=== PATIENT | male | born 1970 | race Caucasian/White ===

== ENCOUNTER 2017-04-15 10:47 | Emergency (ER) | payer OTHER, BC ==
[2017-04-15 11:06] VITALS: TEMP 98.3; O2SAT 98
[2017-04-15 11:10] VITALS: RESP 18
--- NOTE | 2017-04-15 11:33 | ED PDOC ---
Arrival/HPI - General Chief Complaint: Lower Extremity Problem/Injury Time Seen by Provider: 04/15/17 11:16 Historian: Patient, Family - History of Present Illness Narrative History of Present Illness (Text): 04/15/17 11:25 Jacek Dunham is a 47 year old male presents to the emergency department complaining of lower right back pain that radiates to his right leg after a mechanical fall. Patient's family reports he was [place] work in [place] and when trying to get on the cart, he missed his step, hit his polanco, and fell on the right side of his body. The trauma occurred at around 08:30 am and patient was a having pain with ambulating after. Patient notes taking Tylenol at home for the pain, but no significant relief was made. Patient denies chest pain, shortness of breath, dizziness, lightheadedness, or palpitation. Patient did not hit their head. Patient denies any loss of consciousness, headache, fever, chills, cough, nausea, vomiting, diarrhea, visual changes, neck pain, dysuria, hematuria, or other complaints. Upon questioning, patient says that he did have a MRI which he thinks may have shown a herniated disc. Last tetanus < 1 year. PMD: Dr. Mcintosh Time/Duration: 1-3 hours Symptom Onset: Sudden Symptom Course: Unchanged Quality: Aching Activities at Onset: Light Modifying Factors (Text): pain is worse on palpation Context: Work Associated Symptoms (Text): None Past Medical History - Provider Review Nursing Documentation Reviewed: Yes - Infectious Disease Hx of Infectious Diseases: None - Psychiatric Hx Substance Use: No - Surgical History Hx Orthopedic Surgery: Yes - Anesthesia Hx Anesthesia: Yes Hx Anesthesia Reactions: No Family/Social History - Physician Review Nursing Documentation Reviewed: Yes Family/Social History: Unknown Family HX Smoking Status: Unknown If Ever Smoked Hx Alcohol Use: No Hx Substance Use: No Allergies/Home Meds Allergies/Adverse Reactions: Allergies acetaminophen [From Percocet] Allergy (Verified 04/15/17 11:06) RASH oxycodone Allergy (Verified 04/15/17 11:06) RASH silodosin [From Rapaflo] Allergy (Verified 04/15/17 11:08) RASH Review of Systems - Physician Review All systems were reviewed & negative as marked: Yes - Review of Systems Constitutional: absent: Fevers Respiratory: absent: SOB Cardiovascular: absent: Chest Pain Gastrointestinal: absent: Abdominal Pain Musculoskeletal: Back Pain (right lower side), Other (right leg pain with abrasions ) Physical Exam Vital Signs Temp Pulse Resp BP Pulse Ox 04/15/17 12:34 78 18 117/74 98 04/15/17 11:10 98.3 F 80 18 115/78 98 04/15/17 11:00 98.3 F 80 16 115/78 98 Temperature: Afebrile Blood Pressure: Normal Pulse: Regular Respiratory Rate: Normal Appearance: Positive for: Well-Appearing, Non-Toxic, Comfortable Pain Distress: None Mental Status: Positive for: Alert and Oriented X 3 - Systems Exam Head: Present: Atraumatic, Normocephalic Pupils: Present: PERRL Conjunctiva: Present: Normal Mouth: Present: Moist Mucous Membranes Pharnyx: Present: Normal. No: ERYTHEMA, EXUDATE Neck: Present: Normal Range of Motion Respiratory/Chest: Present: Clear to Auscultation, Good Air Exchange. No: Respiratory Distress, Accessory Muscle Use Cardiovascular: Present: Regular Rate and Rhythm, Normal S1, S2. No: Murmurs Abdomen: Present: Normal Bowel Sounds. No: Tenderness, Distention, Peritoneal Signs Back: Present: Other (tender in right low back region around the posterior iliac bone). No: Midline Tenderness Upper Extremity: Present: Normal Inspection. No: Cyanosis, Edema Lower Extremity: Present: Tenderness (tnederness in polanco), Other (linear abrasion on right anterior polanco). No: Edema Neurological: Present: GCS=15, CN II-XII Intact, Speech Normal Skin: Present: Warm, Dry, Normal Color. No: Rashes Psychiatric: Present: Alert, Oriented x 3, Normal Insight, Normal Concentration Medical Decision Making ED Course and Treatment: 04/15/17 11:25 Impression: 47 year old patient with right lower back pain and right leg pain after trauma. Differential Diagnosis included but are not limited to: muscle spasm vs contusion vs sciatic/radiculopathy Plan: -- Hip and Pelvis X-ray -- Right hip X-ray -- Lumbar spine X-ray -- Tibia fibula (right) X-ray -- Toradol, Ultram, and Valium -- Reassess and disposition Progress Notes: 04/15/17 12:50 Hip and Pelvis X-ray: Creator : Alana Rojas V. FINDINGS: No fracture or gross dislocation. Bilateral superolateral hip joint space narrowing. No lytic lesion. Spondylosis space narrowing inferior lumbar levels. Unremarkable sacroiliac and pubic symphyseal joints. IMPRESSION: Mild superolateral hip joint space narrowing. No fracture or other acute hip pathology appreciated. Inferior lumbar spondylosis with disc space narrowing. S1 spina bifida occulta 04/15/17 12:50 Lumbar Spine X-ray: Creator : Alana Rojas V. FINDINGS: BONES: Lumbar lordotic straightening. . No listhesis. No fracture. Anterior superior L4 spondylosis. S1 spina bifida occulta DISC SPACES: L5-S1 disc space narrowing OTHER FINDINGS: None. IMPRESSION: No fracture. L4 spondylosis. L5-S1 disc space narrowing 04/15/17 12:55 Tibia and Fibula X-ray: Creator: Alana Rojas V. FINDINGS: BONES:No fracture or destructive lesion. JOINT SPACES:Unremarkable. OTHER FINDINGS:None. IMPRESSION: Unremarkable radiographs of the right tibia and fibula. 04/15/17 13:36 x-rays are normal with FROM of all joints on exam with normal reflexes. Patient given nsaid, muscle relaxant, and tramadol with mild-moderate relief. X -rays with no acute findings. Will d/c him with cane in the ED to help with ambulation and f/u pmd. - RAD Interpretation Radiology Orders: 04/15/17 11:31 HIP MIN 2V W/ PELVIS RT [RAD] Stat LS SPINE WITH OBL > 18 YRS OLD [RAD] Stat 04/15/17 11:32 TIBIA FIBULA RIGHT [RAD] Stat [employer] Tile Setter: Radiologist - Medication Orders Current Medication Orders: Discontinued Medications Diazepam (Valium) 5 mg PO ONCE ONE Stop: 04/15/17 11:32 Last Admin: 04/15/17 12:02 Dose: 5 mg Ketorolac Tromethamine (Toradol) 60 mg IM STAT STA Stop: 04/15/17 11:31 Last Admin: 04/15/17 12:02 Dose: 60 mg Tramadol HCl (Ultram) 50 mg PO STAT STA Stop: 04/15/17 11:32 Last Admin: 04/15/17 12:02 Dose: 50 mg - Scribe Statement The provider has reviewed the documentation as recorded by the Scribe 04/15/2017 Selena Javed Attestation: All medical record entries made by the Janeenibe were at my direction and personally dictated by me. I have reviewed the chart and agree that the record accurately reflects my personal performance of the history, physical exam, medical decision making, and the department course for this patient. I have also personally directed, reviewed, and agree with the discharge instructions and disposition. Disposition/Present on Arrival - Present on Arrival Any Indicators Present on Arrival: No History of DVT/PE: No History of Uncontrolled Diabetes: No Urinary Catheter: No History of Decub. Ulcer: No History Surgical Site Infection Following: Orthopedic Procedures - Disposition Have Diagnosis and Disposition been Completed?: Yes Diagnosis: Lumbar radiculopathy, Skin abrasion Disposition: HOME/ ROUTINE Disposition Time: 13:35 Patient Plan: Discharge Patient Problems: Current Active Problems Problem Status Onset Lumbar radiculopathy Acute Skin abrasion Acute Condition: GOOD Discharge Instructions (ExitCare): Lumbar Radiculopathy (ED) Print Language: SIN[place] Additional Instructions: Keep wound clean. Apply bacitracin daily. Take the medications as prescribed. Avoid any strenuous activity and any heavy lifting. However avoid staying in bed for prolonged periods. Follow up with your primary care doctor for reassessment. Return to the emergency department if any new concerning symptoms. Prescriptions: Baclofen [Lioresal] 1 cap PO TID PRN #20 tab PRN Reason: Pain, Moderate (4-7) Lidocaine 5% [Lidoderm] 1 ea TD DAILY #10 patch Naproxen [Naprosyn] 500 mg PO BID PRN #30 tab PRN Reason: Pain traMADol [Ultram] 1 - 2 tab PO Q8H PRN #20 tab PRN Reason: Pain, Severe (8-10) Referrals: Annita Mcintosh MD [Primary Care Provider] - Follow up with primary Forms: [employer] ([place]ese), WORK NOTE
--- NOTE | 2017-04-15 12:42 | RAD ---
PROCEDURE: Radiographs of the right tibia and fibula. HISTORY: R polanco pain s/p fall COMPARISON: None available. TECHNIQUE: Frontal and lateral views obtained. FINDINGS: BONES: No fracture or destructive lesion. JOINT SPACES: Unremarkable. OTHER FINDINGS: None. IMPRESSION: Unremarkable radiographs of the right tibia and fibula.
--- NOTE | 2017-04-15 12:45 | RAD ---
PROCEDURE: Radiographs of the Lumbar Spine. HISTORY: radicular R back pain s/p fall COMPARISON: No prior. FINDINGS: BONES: Lumbar lordotic straightening. . No listhesis. No fracture. Anterior superior L4 spondylosis. S1 spina bifida occulta DISC SPACES: L5-S1 disc space narrowing OTHER FINDINGS: None. IMPRESSION: No fracture. L4 spondylosis. L5-S1 disc space narrowing
--- NOTE | 2017-04-15 12:47 | RAD ---
PROCEDURE: HISTORY: R low back/hip pain s/p fall COMPARISON: None TECHNIQUE: AP view of the pelvis and applicable frog leg views obtained. FINDINGS: No fracture or gross dislocation. Bilateral superolateral hip joint space narrowing. No lytic lesion. Spondylosis space narrowing inferior lumbar levels. Unremarkable sacroiliac and pubic symphyseal joints. IMPRESSION: Mild superolateral hip joint space narrowing. No fracture or other acute hip pathology appreciated. Inferior lumbar spondylosis with disc space narrowing. S1 spina bifida occulta
[2017-04-15 13:48] VITALS: BP 114/71; PULSE 74
== END 2017-04-15 13:55 | disposition home or self-care (01) ==
LOC: ED 10:47
DX: S80.811A Abrasion, right lower leg, initial encounter (principal); W18.39XA Other fall on same level, initial encounter; Y93.89 Activity, other specified; Y92.89 Other specified places as the place of occurrence of the external cause; Y99.0 Civilian activity done for income or pay; M54.16 Radiculopathy, lumbar region
CPT/HCPCS: 72110; 73502; 73590; 96372; 99284; J1885